=== PATIENT | female | born 1965 | race Caucasian/White ===

== ENCOUNTER 2016-12-01 12:32 | Day surgery (SDC) | payer BC ==
[2016-11-29 10:42] LABS: BASOPHILS 0.6 %; BASOPHILS ABSOLUTE 0.04 10/3/uL (0.0-0.16); EOSINOPHILS 2.2 %; EOSINOPHILS ABSOLUTE 0.15 10/3/uL (0.0-0.53); HEMATOCRIT 39.5 % (36.0-48.0); HEMOGLOBIN 13.1 g/dL (12.0-16.0); IMMATURE GRANULOCYTES 0.1 %; IMMATURE GRANULOCYTES ABSOLUTE 0.01 10/3/uL (0.0-0.11); LYMPHOCYTES 49.4 %; MANUAL DIFF NO %; MEAN CORPUS HGB CONC 33.2 g/dL (32.0-36.0); MEAN CORPUSCULAR HEMOGLOB 28.9 pg (26.0-34.0); MEAN PLATELET VOLUME 10.6 fL (9.2-13.0); MONOCYTES 6.5 %; MONOCYTES ABSOLUTE 0.45 10/3/uL (0.21-1.20); NEUTROPHILS 41.2 %; NEUTROPHILS ABSOLUTE 2.83 10/3/uL (2.02-8.40); PLATELET COUNT 243 10/3/uL (150-400); RBC DISTRIBUTION WIDTH 13.4 % (12.0-16.0); RED CELL COUNT 4.54 10/6/uL (4.0-5.6); WHITE BLOOD CELLS 6.9 10/3/uL (4.5-10.5)
[2016-11-29 10:47] LABS: INTERNATIONAL NORMAL RATI 0.9 UNITS (-); PARTIAL THROMBO TIME 25.7 SEC (22.5-37.2); PFA (COL/EPI) 161 SEC (72-180); PROTIME (NOT ORD) 12.1 SEC (12.0-14.5)
[2016-11-29 10:52] LABS: BUN (BLOOD UREA NITROGEN) 12 MG/DL (6-23); CALCIUM, SERUM 8.8 MG/DL (8.5-10.4); CHLORIDE, SERUM 106 MMOL/L (96-112); CO2 (CARBON DIOXIDE) 27 MMOL/L (24-34); CREATININE 0.77 MG/DL (0.55-1.02); GFR AFRICAN AMERICAN 103 ML/MIN (>=60); GFR NON AFRICAN AMERICAN 89 ML/MIN (>=60); GLUCOSE, SERUM 115 MG/DL (60-99); POTASSIUM, SERUM 4.1 MMOL/L (3.5-5.3); SODIUM, SERUM 141 MMOL/L (135-148)
--- NOTE | ~2016-12-01 | OP ---
Record Of Operation [facility] [address] [place]. [address] NAME: MIS ZAVALA : 63 STATUS : [facility]#: [id number] AGE: 51 ADM/REG DATE : 12/01/16 MR#: [id number] REPORT SERV DATE: 12/02/16 DICTATED BY: CLAUDIA REGALADO DATE: 12/02/16 REPORT STATUS : Draft TRANSCRIBED BY: ADE DATE: 12/02/16 DATE OF PROCEDURE: 12/01/2016 PREOPERATIVE DIAGNOSIS: Surgical absence of the breast, status post Passot-type reconstruction. POSTOPERATIVE DIAGNOSIS: Surgical absence of the breast, status post Passot-type reconstruction. PROCEDURE: Implant exchange with 685 MH bilaterally and fat grafting for deformity. INDICATIONS AND FINDINGS OF THE PROCEDURE: This 51-year-old obese female is status post a bilateral mastectomy, Passot-type reconstruction. 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 DETAILS OF THE PROCEDURE: The patient was brought to the operating room. After adequate sedation was achieved, she was prepped and draped in the usual sterile fashion for the above described procedure. The abdomen was then infiltrated with about 400 mL of wetting solution. Then, the two small stab incisions 350 mL of fatty aspirate was removed to revolve apparatus. This was treated appropriately, yielding about 280 mL of prepared fat. Then through multiple stab incisions, 140 mL of fat was injected into the soft tissue envelope using a topographical map placed before surgery. With this completed, the harvest incisions were closed with 5-0 fast-absorbing gut and she was cleansed with dilute Hibiclens solution and a towel was placed over the abdomen. Gloves were changed. Incision was then made in the right inframammary crease excising an area of instability and dissection was carried down to the implant. The implant was ruptured and removed. A superior capsulotomy was then placed. She was checked for hemostasis. Irrigated with Hibiclens solution, allowing a Hibiclens soaked gauze to stay in place for about 5 minutes. The inferior drain was then placed and the 685 MH implant was placed into the right side manipulated into an appropriate position and the wounds were closed with a deep layer of 3-0 Vicryl and then multiple layers of Monocryl through to an intracuticular in the skin. Our attention was turned contralaterally where identical procedure was carried out. Incision was made. Dissection was carried down to the level of the implant. The implant was ruptured and removed. Superior capsulotomy was carried out. She was irrigated, checked for hemostasis, irrigated again, and then 685 implant was placed over a 10-Setswana drain. This was closed in multiple layers of 3-0 Vicryl and Monocryl through to an intracuticular in the skin. She was cleansed with peroxide. The drains were set to suction. Dry dressings were placed and she was remanded to the recovery room in stable condition. SPONGE COUNTS: All sponge and needle counts were correct. KIA/ADE Claudia Record Of Operation [address] [address] NAME: MIS ZAVALA : 63 STATUS : [facility] PAT#: [id number] AGE: 51 ADM/REG DATE : 12/01/16 MR#: [id number] REPORT SERV DATE: 12/02/16 DICTATED BY: CLAUDIA REGALADO DATE: 12/02/16 REPORT STATUS : Draft TRANSCRIBED BY: ADE DATE: 12/02/16 Daniel Regalado / [id number] CC: Daniel Juárez M.D.
[~2016-12-01 12:32] MED LIST: AIRBORNE PO; ATV.5 PO; BEN25 PO; CYANO1000T PO; EFFEXXR37 PO; FLONASE NAS; K500 PO; MULTIVIT/MIN PO; OPCON-A OPH; PERCOCET 7.5/321 TAB PO; PRILOSEC40 MG PO; TAMOXIFEN20 M1 PO; VITAMIN D31000 UNIT PO; VITC500 PO; ZOFRAN4 PO
== END 2016-12-01 19:22 | disposition home or self-care (01) ==
LOC: SDC 12:32
PROVIDERS: Surgery Surgery of the Hand
PROC: 0HRV37Z Replacement of Bilateral Breast with Autologous Tissue Substitute, Percutaneous Approach (ICD-10-PCS; principal; 2016-12-01 13:00)
DX: N65.0 Deformity of reconstructed breast (principal); I10 Essential (primary) hypertension; E78.00 Pure hypercholesterolemia, unspecified; Z91.040 Latex allergy status; Z85.3 Personal history of malignant neoplasm of breast
CPT/HCPCS: 80048; 84703; 85025; 85576; 85610; 85730; 93005; A9270-GY; C1769; C1789; J0690; J1170; J2250; J2370; J2405; J3010